=== PATIENT | female | born 1950 | race Caucasian/White ===

== ENCOUNTER 2020-09-18 18:34 | Inpatient (IN) | payer OTHER, BC ==
[2020-09-18] MEDS ORDERED: Boostrix 0.5 ML (Tdap) VIAL ONE (19:22)
[2020-09-18] MEDS ORDERED: Fentanyl 100 MCG/2 ML VIAL ONE (19:22)
[2020-09-18] MEDS ORDERED: Dextrose 50% Abboject 50 ML SYRINGE SLOW IVP PRN (20:32)
[2020-09-18] MEDS ORDERED: Ondansetron PF 4 MG/2 ML Vial IVP PRN (20:32)
[2020-09-18] MEDS ORDERED: hydrALAZINE 20 MG/ML VIAL SLOW IVP PRN (20:32)
[2020-09-18] MEDS ORDERED: Dextrose 5% in Water 1,000 ML IV PRN (20:32)
[2020-09-18] MEDS ORDERED: Cyclobenzaprine 10 MG TAB PO PRN (20:38)
[2020-09-18] MEDS ORDERED: traMADol HCl 50 MG TAB PO PRN (20:39)
[2020-09-18] MEDS ORDERED: Morphine 4 MG/ML VIAL SLOW IVP PRN (20:41)
[2020-09-18 20:48] LABS: #Eosinphils 0.1 thou/uL (0.0-0.7); #Monocytes 0.6 thou/uL (0.11-0.59); %Basophils 0.3 % (0.0-1.0); %Eosinophils 0.4 % (0.0-10.0); %Lymphocytes 7.9 % (21.0-51.0); %Monocytes 4.3 % (0.0-10.0); %Neutrophils 87.1 % (42.0-75.0); Hemoglobin 13.9 g/dL (12.0-16.0); Mean Corpuscular HGB CONC 34.5 g/dL (32.0-36.0); Mean Corpuscular Hemoglobin 30.9 pg (27.0-31.0); Mean Corpuscular Volume 89.7 fL (78.0-98.0); Mean Platelet Volume 6.8 fL (7.4-10.4); Platelet Count 256 thou/uL (130-400); RBC Distribution Width 11.9 % (11.5-14.5); White Blood Cell (WBC) Count 12.7 thou/uL (4.8-10.8)
[2020-09-18 21:55] LABS: Phosphorus 2.6 mg/dL (2.3-4.7)
[2020-09-18 22:49] LABS: ALT (SGPT) 23 U/L (8-55); AST (SGOT) 24 U/L (5-34); Albumin 4.3 g/dL (3.4-4.8); Alkaline Phosphatase 70 U/L (40-110); Anion Gap 19 mmol/L (10-20); BUN (Urea Nitrogen) 19 mg/dL (9.8-20.1); Bilirubin, Total 0.5 mg/dL (0.2-1.2); Calc. Creatinine Clearance 0 mL/min (70-130); Calcium 9.3 mg/dL (7.8-10.44); Carbon Dioxide 18 mmol/L (23-31); Chloride 108 mmol/L (98-107); Globulin 3.1 g/dL (2.4-3.5); Glucose 105 mg/dL (80-115); Potassium 3.8 mmol/L (3.5-5.1); Protein, Total 7.4 g/dL (5.8-8.1); Sodium 141 mmol/L (136-145)
[2020-09-18] MEDS: Acetaminophen 500 MG TAB PO SCH (22:56)
[2020-09-18] MEDS: Sodium Chloride 0.9% 1,000 ML IV SCH (22:56)
[2020-09-18] MEDS: traMADol HCl 50 MG TAB PO SCH (22:57)
[2020-09-18] MEDS: Ketorolac Tromethamine 30 MG/ML VIAL IVP SCH (22:58)
[2020-09-18] MEDS: Senokot S 8.6-50 MG TAB PO SCH (23:05)
[2020-09-18] MEDS: Famotidine 20 MG TAB PO SCH (23:06)
[2020-09-18 23:23] VITALS: BMI 23.8
[2020-09-18 23:58] LABS: SARS-CoV-2 NAA Rapid Test Not Detected (NotDetected)
[2020-09-19 05:37] LABS: #Eosinphils 0.1 thou/uL (0.0-0.7); #Lymphocytes 1.1 thou/uL (1.20-3.40); #Monocytes 0.5 thou/uL (0.11-0.59); #Neutrophils 4.6 thou/uL (1.40-6.50); %Eosinophils 1.2 % (0.0-10.0); %Lymphocytes 17.9 % (21.0-51.0); %Monocytes 7.4 % (0.0-10.0); %Neutrophils 73.6 % (42.0-75.0); Hemoglobin 12.2 g/dL (12.0-16.0); Mean Corpuscular HGB CONC 33.6 g/dL (32.0-36.0); Mean Corpuscular Hemoglobin 30.3 pg (27.0-31.0); Mean Corpuscular Volume 90.1 fL (78.0-98.0); Mean Platelet Volume 7.3 fL (7.4-10.4); Platelet Count 219 thou/uL (130-400); Red Blood Cell (RBC) Count 4.02 mill/uL (4.20-5.40); White Blood Cell (WBC) Count 6.3 thou/uL (4.8-10.8)
[2020-09-19 05:57] LABS: Anion Gap 12 mmol/L (10-20); BUN (Urea Nitrogen) 16 mg/dL (9.8-20.1); Calc. Creatinine Clearance 70 mL/min (70-130); Calcium 8.1 mg/dL (7.8-10.44); Carbon Dioxide 22 mmol/L (23-31); Chloride 109 mmol/L (98-107); Glucose 109 mg/dL (80-115); Potassium 3.9 mmol/L (3.5-5.1); Sodium 139 mmol/L (136-145)
[2020-09-19] MEDS: Ketorolac Tromethamine 30 MG/ML VIAL IVP SCH ×4 (05:59→23:53)
[2020-09-19] MEDS: Acetaminophen 500 MG TAB PO SCH ×4 (06:01→23:53)
[2020-09-19] MEDS: Sodium Chloride 0.9% 1,000 ML IV SCH (06:10)
[2020-09-19] MEDS: traMADol HCl 50 MG TAB PO SCH ×3 (06:11→18:08)
[2020-09-19] MEDS ORDERED: CEFAZOLIN 2 GM in Premix Bag 1 BAG IVPB SCH (07:30)
[2020-09-19] MEDS: Senokot S 8.6-50 MG TAB PO SCH ×2 (07:37→20:20)
[2020-09-19] MEDS: Polyethylene Glycol 3350 17 GM Packet PO SCH (07:37)
[2020-09-19] MEDS: Lactated Ringer's 1,000 ML IV SCH ×2 (08:03→18:07)
[2020-09-19] MEDS: Famotidine 20 MG TAB PO SCH ×2 (08:05→20:19)
[2020-09-19] MEDS ORDERED: Fentanyl 100 MCG/2 ML VIAL ONE ×2 (13:59→16:30)
[2020-09-19] MEDS ORDERED: PROPOFOL 200 MG/20 ML VIAL ONE (14:14)
[2020-09-19] MEDS ORDERED: PHENYLEPHRINE-NS 100 MCG/ML 10 ML SYRINGE ONE (14:14)
[2020-09-19] MEDS ORDERED: Dexamethasone 20 MG/5 ML VIAL ONE (14:14)
[2020-09-19] MEDS ORDERED: Lidocaine 1% PF 5 ML VIAL ONE (14:14)
[2020-09-19] MEDS ORDERED: Ondansetron PF 4 MG/2 ML Vial ONE (14:14)
[2020-09-19] MEDS ORDERED: Ketorolac Tromethamine 30 MG/ML VIAL ONE (14:14)
[2020-09-19] MEDS: CEFAZOLIN 2 GM in Premix Bag 1 BAG IVPB SCH (21:52)
[2020-09-20] MEDS: traMADol HCl 50 MG TAB PO SCH ×5 (00:02→23:49)
[2020-09-20] MEDS: Acetaminophen 500 MG TAB PO SCH ×4 (05:40→23:49)
[2020-09-20] MEDS: Ketorolac Tromethamine 30 MG/ML VIAL IVP SCH (05:40)
[2020-09-20] MEDS: CEFAZOLIN 2 GM in Premix Bag 1 BAG IVPB SCH (05:41)
[2020-09-20 05:46] LABS: #Lymphocytes 0.9 thou/uL (1.20-3.40); #Monocytes 0.3 thou/uL (0.11-0.59); #Neutrophils 9.1 thou/uL (1.40-6.50); %Basophils 0.2 % (0.0-1.0); %Eosinophils 0.1 % (0.0-10.0); %Lymphocytes 8.5 % (21.0-51.0); %Monocytes 2.8 % (0.0-10.0); %Neutrophils 88.4 % (42.0-75.0); Hemoglobin 11.5 g/dL (12.0-16.0); Mean Corpuscular HGB CONC 33.4 g/dL (32.0-36.0); Mean Corpuscular Hemoglobin 30.4 pg (27.0-31.0); Mean Platelet Volume 7.6 fL (7.4-10.4); Platelet Count 223 thou/uL (130-400); RBC Distribution Width 11.9 % (11.5-14.5); Red Blood Cell (RBC) Count 3.79 mill/uL (4.20-5.40); White Blood Cell (WBC) Count 10.3 thou/uL (4.8-10.8)
[2020-09-20] MEDS: Lactated Ringer's 1,000 ML IV SCH (06:14)
[2020-09-20] MEDS: Ibuprofen 200 MG TAB PO SCH ×3 (09:31→19:59)
[2020-09-20] MEDS: Aspirin 81 mg Enteric Coated Tablet PO SCH ×2 (09:31→20:00)
[2020-09-20] MEDS: Senokot S 8.6-50 MG TAB PO SCH ×2 (09:32→20:01)
[2020-09-20] MEDS: Polyethylene Glycol 3350 17 GM Packet PO SCH (09:33)
[2020-09-21] MEDS: Acetaminophen 500 MG TAB PO SCH ×2 (05:21→11:40)
[2020-09-21] MEDS: traMADol HCl 50 MG TAB PO SCH ×2 (05:22→11:44)
[2020-09-21] MEDS: Senokot S 8.6-50 MG TAB PO SCH (08:37)
[2020-09-21] MEDS: Aspirin 81 mg Enteric Coated Tablet PO SCH (08:37)
[2020-09-21] MEDS: Ibuprofen 200 MG TAB PO SCH (08:38)
[2020-09-21] MEDS: Polyethylene Glycol 3350 17 GM Packet PO SCH (08:39)
[2020-09-21] MEDS ORDERED: Enoxaparin Sodium 40 MG/0.4 ML SYRINGE SC SCH (09:00)
[2020-09-21 11:43] VITALS: BP 129/81; TEMP 97.6
== END 2020-09-21 13:19 | disposition home health service (06) | DRG 511 ==
LOC: ERS 18:34 → SURG A 20:32
PROVIDERS: ADMIT Specialist; ATTEND Specialist
PROC: 0PSH04Z Reposition Right Radius with Internal Fixation Device, Open Approach (ICD-10-PCS; principal; 2020-09-19)
PROC: 0QSD04Z Reposition Right Patella with Internal Fixation Device, Open Approach (ICD-10-PCS; 2020-09-19)
DX: S52.551A Other extraarticular fracture of lower end of right radius, initial encounter for closed fracture (principal); S82.031A Displaced transverse fracture of right patella, initial encounter for closed fracture; Z20.822 Contact with and (suspected) exposure to COVID-19; W01.0XXA Fall on same level from slipping, tripping and stumbling without subsequent striking against object, initial encounter; Z23 Encounter for immunization; Z85.820 Personal history of malignant melanoma of skin
CPT/HCPCS: 24650; 36415; 71045; 76000; 80048; 80053; 83735; 84100; 85025; 90471; 90715; 90732; 93005; 96374; C1713; C1769; G0009; G0390; J0690; J1100; J1885; J2405; J2704; J3010; U0002

== ENCOUNTER 2022-12-14 08:28 | Outpatient (CLI) | payer MEDICARE, BC | END 2022-12-14 08:29 | disposition home or self-care (01) | LOC: BICMAMMO 08:28 | PROVIDERS: ATTEND Nurse Practitioner Family | DX: Z12.31 Encounter for screening mammogram for malignant neoplasm of breast (principal); Z13.820 Encounter for screening for osteoporosis; M85.89 Other specified disorders of bone density and structure, multiple sites; Z78.0 Asymptomatic menopausal state; Z80.3 Family history of malignant neoplasm of breast; Z85.820 Personal history of malignant melanoma of skin | CPT/HCPCS: 77063; 77067; 77080 ==

== ENCOUNTER 2023-12-24 11:27 | Outpatient (CLI) | payer MEDICARE | END 2023-12-24 11:28 | disposition home or self-care (01) | LOC: BICMAMMO 11:27 | PROVIDERS: ATTEND Nurse Practitioner Family | DX: Z12.31 Encounter for screening mammogram for malignant neoplasm of breast (principal); N64.89 Other specified disorders of breast; Z80.3 Family history of malignant neoplasm of breast; Z85.820 Personal history of malignant melanoma of skin | CPT/HCPCS: 77063; 77067 ==